=== PATIENT | male | born 1990 | race Caucasian/White ===

== ENCOUNTER 2018-03-03 14:13 | Emergency (ER) | payer BC ==
--- NOTE | 2018-03-03 16:28 | EDPHYS ---
Physician Documentation [facility] Name: Blayne Zepeda III Age: 28 yrs Sex: Male : 1990 Arrival Date: 03/03/2018 Time: 14:14 Bed 11 Private MD: [facility] ED Physician Bay Dennis HPI: 03/03 16:15 This 28 yrs old Male presents to ER via Ambulatory with complaints of Right pm1 Shoulder Injury. 16:15 The patient or guardian complains of pain, Possible dislocation. right shoulder. pm1 Context: The problem was sustained at home, resulted from playing with nephew. Onset: The symptoms/episode began/occurred today. Modifying factors: the symptoms are alleviated by believes that he felt his shoulder pop back in [employer], The symptoms are aggravated by Movement prior to possible self reduction. Associated signs and symptoms: Pertinent negatives: chest pain, Numbness in right arm tingling. Severity of symptoms: in the emergency department the symptoms have resolved. Treatment prior to arrival includes: sling. The patient has not experienced similar symptoms in the past. Patient with sword fighting with a Nerf sword and when he was swing backward with his right arm he felt a pop in the right shoulder. Possible dislocation per patient. never happened before. On the way to the ER he felt his shoulder possibly reduce and his pain resolved. Patient currently has FROM without any pain to right shoulder. Historical: - Allergies: 14:45 No Known Allergies; ss - Home Meds: 14:45 None [Active]; ss - PMHx: 14:45 None; ss - PSHx: 14:45 None; ss - Immunization history:: Adult Immunizations up to date. - Social history:: Smoking status: Patient/guardian denies using tobacco. - Ebola Screening: : Patient denies exposure to infectious person Patient denies travel to an Ebola-affected area in the 21 days before illness onset. ROS: 16:15 Constitutional: Negative for fever, chills, and weight loss, Eyes: Negative for injury, pm1 pain, redness, and discharge, ENT: Negative for injury, pain, and discharge, Neck: Negative for injury, pain, and swelling, Cardiovascular: Negative for chest pain, palpitations, and edema, Respiratory: Negative for shortness of breath, cough, wheezing, and pleuritic chest pain, Abdomen/GI: Negative for abdominal pain, nausea, vomiting, diarrhea, and constipation, Back: Negative for injury and pain, Skin: Negative for injury, rash, and discoloration. 16:15 Neuro: Negative for headache, weakness, numbness, tingling, and seizure. 16:15 MS/extremity: Positive for pain, of the right shoulder. Exam: 16:15 Constitutional: This is a well developed, well nourished patient who is awake, alert, pm1 and in no acute distress. Head/Face: Normocephalic, atraumatic. Eyes: Pupils equal round and reactive to light, extra-ocular motions intact. Lids and lashes normal. Conjunctiva and sclera are non-icteric and not injected. Cornea within normal limits. Periorbital areas with no swelling, redness, or edema. ENT: Nares patent. No nasal discharge, no septal abnormalities noted. Tympanic membranes are normal and external auditory canals are clear. Oropharynx with no redness, swelling, or masses, exudates, or evidence of obstruction, uvula midline. Mucous membranes moist. Neck: Trachea midline, no thyromegaly or masses palpated, and no cervical lymphadenopathy. Supple, full range of motion without nuchal rigidity, or vertebral point tenderness. No Meningismus. Chest/axilla: Normal chest wall appearance and motion. Nontender with no deformity. No lesions are appreciated. Cardiovascular: Regular rate and rhythm with a normal S1 and S2. No gallops, murmurs, or rubs. Normal PMI, no JVD. No pulse deficits. Respiratory: Lungs have equal breath sounds bilaterally, clear to auscultation and percussion. No rales, rhonchi or wheezes noted. No increased work of breathing, no retractions or nasal flaring. Abdomen/GI: Soft, non-tender, with normal bowel sounds. No distension or tympany. No guarding or rebound. No evidence of tenderness throughout. Back: No spinal tenderness. No costovertebral tenderness. Full range of motion. Skin: Warm, dry with normal turgor. Normal color with no rashes, no lesions, and no evidence of cellulitis. 16:15 Musculoskeletal/extremity: Extremities: noted in the right shoulder: There is no evidence of decreased ROM, deformity, pain, tenderness, ROM: intact in all extremities, full active range of motion, in the right shoulder, full passive range of motion, in the right shoulder, Circulation is intact in all extremities. Sensation intact. 16:15 Neuro: Orientation: is normal, Motor: is normal, moves all fours. Vital Signs: 14:44 BP 112 / 73; Pulse 72; Resp 16; Temp 97.2(TE); Pulse Ox 100% on R/A; Weight 88.45 kg; ss Height 5 ft. 8 in. (172.72 cm); Pain 4/10; 14:44 Body Mass Index 29.65 (88.45 kg, 172.72 cm) ss MDM: 16:07 Patient medically screened. pm1 16:15 ED course: Offered patient a sling. Patient refused. He currently has full range of pm1 motion to right shoulder without any pain. 16:25 ED course: Patient has his own shoulder sling applied to right shoulder from a large pm1 scarf. 16:26 Data reviewed: vital signs. Data interpreted: Pulse oximetry: on room air is 100 %. pm1 Interpretation: normal. Counseling: I had a detailed discussion with the patient and/or guardian regarding: the historical points, exam findings, and any diagnostic results supporting the discharge/admit diagnosis, radiology results, the need for outpatient follow up, to return to the emergency department if symptoms worsen or persist or if there are any questions or concerns that arise at home. 03/03 14:47 Order name: Shoulder Right (2 View) XRAY ss Administered Medications: No medications were administered Disposition: 03/03/18 16:27 Discharged to Home. Impression: Pain in right shoulder. - Condition is Stable. - Discharge Instructions: Musculoskeletal Pain, Shoulder Pain. - Work release form, Medication Reconciliation Form, Thank You Letter form. - Follow up: Emergency Department; When: As needed; Reason: Worsening of condition. Follow up: Brady Hutchinson DO; When: 2 - 3 days; Reason: Recheck today's complaints, Continuance of care, Re-evaluation by your physician. - Problem is new. - Symptoms have improved. - Notes: Take ibuprofen or tylenol as needed for pain Addendum: 03/06/2018 08:11 Co-signature as Attending Physician, Bay Dennis MD I agree with the assessment and c najera plan of care. Signatures: Dispatcher [employer] Bay De MD MD cha Smirch, Shelby, KANDI RN ss Robbie Oh, MAINTENANCE TEAM MEMBER MAINTENANCE TEAM MEMBER pm1 Corrections: (The following items were deleted from the chart) 03/03 16:48 16:27 03/03/2018 16:27 Discharged to Home. Impression: Pain in right shoulder. ss Condition is Stable. Forms are Medication Reconciliation Form, Thank You Letter, Antibiotic Education, Prescription Opioid Use. Follow up: Emergency Department; When: As needed; Reason: Worsening of condition. Follow up: Brady Hutchinson; When: 2 - 3 days; Reason: Recheck today's complaints, Continuance of care, Re-evaluation by your physician. Problem is new. Symptoms have improved. pm1
--- NOTE | 2018-03-03 16:28 | ER ---
Nurse's Notes [facility] Name: Blayne Zepeda III Age: 28 yrs Sex: Male : 1990 Arrival Date: 03/03/2018 Time: 14:14 Bed 11 Private MD: Brady Hutchinson Diagnosis: Pain in right shoulder Presentation: 03/03 14:45 Presenting complaint: Patient states: "I was playing with my nephew and I swung ss something back and hyperflexed my arm, and I felt my shoulder pop out. I think it popped in on the way here." Pt reports pain has improved since he felt his shoulder go back into place. Transition of care: patient was not received from another setting of care. Onset of symptoms was March 03, 2018. Risk Assessment: Do you want to hurt yourself or someone else? Patient reports no desire to harm self or others. Initial Sepsis Screen: Does the patient meet any 2 criteria? No. Patient's initial sepsis screen is negative. Does the patient have a suspected source of infection? No. Patient's initial sepsis screen is negative. Care prior to arrival: None. 14:45 Method Of Arrival: Ambulatory ss 14:45 Acuity: ANDREAS 4 ss Historical: - Allergies: 14:45 No Known Allergies; ss - Home Meds: 14:45 None [Active]; ss - PMHx: 14:45 None; ss - PSHx: 14:45 None; ss - Immunization history:: Adult Immunizations up to date. - Social history:: Smoking status: Patient/guardian denies using tobacco. - Ebola Screening: : Patient denies exposure to infectious person Patient denies travel to an Ebola-affected area in the 21 days before illness onset. Screenin:45 Abuse screen: Denies threats or abuse. Denies injuries from another. Nutritional ss screening: No deficits noted. Tuberculosis screening: No symptoms or risk factors identified. Never had TB. Fall Risk None identified. Assessment: 14:45 General: Appears in no apparent distress. comfortable, Behavior is calm, cooperative. ss Pain: Complains of pain in R shoulder Pain currently is 4 out of 10 on a pain scale. Quality of pain is described as "sore". Neuro: Level of Consciousness is awake, alert, obeys commands, Oriented to person, place, time, situation. Cardiovascular: Capillary refill < 3 seconds is brisk in bilateral fingers. Respiratory: Airway is patent Respiratory effort is even, unlabored, Respiratory pattern is regular, symmetrical. GI: No signs and/or symptoms were reported involving the gastrointestinal system. EENT: Nares are clear Oral mucosa is moist. Throat is clear. Derm: Skin is intact, is healthy with good turgor, Skin is dry, Skin is pink, warm \\T\\ dry. normal. Musculoskeletal: Circulation, motion, and sensation intact. Range of motion: intact in all extremities, Swelling absent Pt reports he felt as if his R shoulder were out just prior to arrival after "hyperflexing" it when playing with nephew. [place] sensation of it "going back into place" en route to ED. Vital Signs: 14:44 BP 112 / 73; Pulse 72; Resp 16; Temp 97.2(TE); Pulse Ox 100% on R/A; Weight 88.45 kg; ss Height 5 ft. 8 in. (172.72 cm); Pain 4/10; 14:44 Body Mass Index 29.65 (88.45 kg, 172.72 cm) ss ED Course: 14:14 Patient arrived in ED. mr 14:15 Brady Hutchinson DO is Private Physician. mr 14:46 Triage completed. ss 14:56 X-ray completed. Portable x-ray completed in exam room. Patient tolerated procedure ml well. 14:57 Shoulder Right (2 View) XRAY In Process Unspecified. EDMS 15:58 May Burgos, RN is Primary Nurse. ss 16:01 Patient has correct armband on for positive identification. Bed in low position. Call ss light in reach. 16:01 No provider procedures requiring assistance completed. Patient did not have IV access ss during this emergency room visit. 16:06 Robbie Oh, YULIANA is PHCP. pm1 16:06 Bay Dennis MD is Attending Physician. pm1 16:26 Brady Hutchinson DO is Referral Physician. pm1 Administered Medications: No medications were administered Outcome: 16:27 Discharge ordered by . pm1 16:48 Discharged to home ambulatory. ss 16:48 Condition: good 16:48 Discharge instructions given to patient, family, Instructed on discharge instructions, follow up and referral plans. medication usage, Demonstrated understanding of instructions, follow-up care, medications. 16:48 Patient left the ED. ss Signatures: Dispatcher [employer] SARIAH Hopkins, Shelley mr Darwin, May Araujo, RN RN ss Robbie Oh, ACOUSTICAL LOGGING ENGINEER ACOUSTICAL LOGGING ENGINEER pm1
--- NOTE | 2018-03-03 18:01 | RAD REPORT ---
EXAM DESCRIPTION: Shoulder Right 2 View - 03/03/2018 2:57 pm CLINICAL HISTORY: Shoulder pain, possible dislocation with self reduction COMPARISON: None. TECHNIQUE: Internal and external rotation views of the right shoulder were obtained. FINDINGS: No dislocation is present and no fracture identified. AC joint is normal in appearance. A cromial humeral joint space is normal. No abnormal calcifications. IMPRESSION: Negative two-view right shoulder examination.
== END 2018-03-03 16:48 | disposition home or self-care (01) ==
LOC: ER 14:13
DX: M25.511 Pain in right shoulder (principal)
CPT/HCPCS: 99283